=== PATIENT | female | born 1995 | race Caucasian/White ===

== ENCOUNTER 2022-09-24 12:01 | Emergency (ER) | payer BC ==
[~2022-09-24] VITALS: Ht 170.2 cm; Wt 74.4 kg
--- NOTE | 2022-09-24 12:22 | NUR ---
UA COLLECTED AT THIS TIME AND READY FOR RECRUITING MANAGER
[2022-09-24 12:23] VITALS: BP 117/84
[2022-09-24] MEDS ORDERED: diphenhydrAMINE HCL 25 MG CAPSULE ONE (12:55)
[2022-09-24] MEDS ORDERED: FAMOTIDINE (20 MG) 20 MG TABLET ONE (12:55)
[2022-09-24] MEDS ORDERED: ONDANSETRON 4 MG TAB.RAPDIS ONE (12:56)
[2022-09-24] MEDS ORDERED: predniSONE 20 MG TABLET ONE (12:58)
[2022-09-24] MEDS ORDERED: diphenhydrAMINE HCL 25 MG CAPSULE PO ONE (13:00)
[2022-09-24] MEDS ORDERED: ONDANSETRON 4 MG TAB.RAPDIS PO ONE (13:00)
[2022-09-24] MEDS ORDERED: FAMOTIDINE (20 MG) 20 MG TABLET PO ONE (13:00)
[2022-09-24] MEDS ORDERED: predniSONE 50 MG TABLET PO ONE (13:00)
[2022-09-24] MEDS ORDERED: PRED50TA PO (14:08)
[2022-09-24] MEDS ORDERED: DIPH25CA83 PO (14:09)
== END 2022-09-24 14:25 | disposition home or self-care (01) ==
LOC: ER 12:06
DX: L50.9 Urticaria, unspecified (principal); T78.40XA Allergy, unspecified, initial encounter; F41.9 Anxiety disorder, unspecified; E03.9 Hypothyroidism, unspecified; Z79.899 Other long term (current) drug therapy; X58.XXXA Exposure to other specified factors, initial encounter
CPT/HCPCS: 99284; 84703; Q0163; J7512; Q0162

== ENCOUNTER 2025-04-27 12:54 | Emergency (ER) | payer BC ==
[~2025-04-27] VITALS: Ht 170.2 cm; Wt 85.7 kg
[~2025-04-27 12:54] MED LIST: DIPH25CA83 PO; PRED50TA PO
[2025-04-27] MEDS ORDERED: LIDOCAINE 5% (PATCH) 1 EA PATCH TP ONE (14:21)
[2025-04-27] MEDS ORDERED: KETOROLAC TROMETHAMINE 15 MG/ML VIAL ONE (14:21)
[2025-04-27] MEDS: KETOROLAC TROMETHAMINE 15 MG/ML VIAL IM ONE (14:28)
[2025-04-27] MEDS: LIDOCAINE 5% (PATCH) 1 EA PATCH TP SCH (14:29)
[2025-04-27] MEDS ORDERED: LIDO30AD10 TP (15:08)
[2025-04-27 15:15] VITALS: BP 124/72; TEMP 98; O2SAT 99
== END 2025-04-27 15:20 | disposition home or self-care (01) ==
LOC: ER 13:02
DX: S39.012A Strain of muscle, fascia and tendon of lower back, initial encounter (principal); M54.42 Lumbago with sciatica, left side; F41.9 Anxiety disorder, unspecified; E05.90 Thyrotoxicosis, unspecified without thyrotoxic crisis or storm; Z79.52 Long term (current) use of systemic steroids
CPT/HCPCS: 99283; 96372; 84703; J1885